=== PATIENT | female | born 1940 | race Caucasian/White ===

== ENCOUNTER 2021-06-06 10:50 | Outpatient (CLI) | payer MEDICARE, SELFPAY ==
--- NOTE | ~2021-06-06 | XR_ITS ---
EXAMINATION: XR foot RT standing 2V DATE: 06/06/2021 11:52 INDICATION: Polymyalgia rheumatica. TECHNIQUE: 2 views of right foot standing were obtained. COMPARISON: None. FINDINGS: Bone alignment is normal. No fracture. There is mild osteoarthritis of first metatarsophala ngeal joint and some of the midfoot joints and interphalangeal joints. There is an old healed fractur e of diaphysis of third metatarsal. There is an erosion of medial aspect of head of first proximal ph alanx. There is enthesophyte at the posterior and plantar aspects of calcaneal tuberosity. IMPRESSION: 1. Erosion of medial aspect of head of first proximal phalanx. This finding may be secondary to old t rauma or gout. 2. Mild polyarticular osteoarthritis. Reviewed, dictated and finalized at location A. UP SCAN COORDINATOR IMPRESSION: 1. Erosion of medial aspect of head of first proximal phalanx. This finding may be secondary to old trauma or gout. 2. Mild polyarticular osteoarthritis.
--- NOTE | ~2021-06-06 | XR_ITS ---
EXAMINATION: XR knee LT 3V EXAM DATE: 06/06/2021 11:52 INDICATION: M35.3 - Polymyalgia rheumatica TECHNIQUE: Three projections of the left knee. There is no prior study for comparison. FINDINGS: No evidence osteochondral defect or joint body in the left knee joint. Moderate amount o f SFA and popliteal arterial sclerosis. Some surgical clips from saphenous venous harvest. Moderate m edial tibiofemoral compartment are osteoarthritis, mild at the other compartments. There are no acute fractures or dislocations identified. There is no subcutaneous gas. The soft tissue is unremarkabl e. Trace joint fluid. IMPRESSION: Mild to moderate left knee osteoarthritis. Reviewed, dictated and finalized at location G. D OFFICER
--- NOTE | ~2021-06-06 | XR_ITS ---
EXAMINATION: XR lumbar spine min 4V EXAM DATE: 06/06/2021 11:52 INDICATION: Polymyalgia. TECHNIQUE: Lumber spine frontal, lateral, bilateral oblique projections. Coned down frontal and lat eral L5-S1 lumbar projections for interpretation. There is no prior study for comparison. FINDINGS: There is moderate to severe disease at L3-4, mild to moderate at L4-5 and mild at the other lumbar levels. There is moderate mid and lower lumbar facet arthropathy. Moderate aortic arterial sc lerosis. The vertebral bodies are aligned in the AP dimension. There are no acute fractures identifie d. No spondylolysis suspected. Sacrum, sacroiliac joints, sacral arcuate lines are intact. IMPRESSION: L3-4 moderate to severe disc disease, moderate mid and lower lumbar facet arthropathy. Reviewed, dictated and finalized at location G. ER STOCK GRADER
--- NOTE | ~2021-06-06 | XR_ITS ---
XR knee RT 3V 06/06/2021 11:52 Indication: Right knee pain Procedure: 3 views right knee Comparison: No prior studies for comparison. Findings: No fracture, subluxation or dislocation. There is complete loss of joint space medially, co nsistent with degenerative joint disease. Osteopenia. No significant joint effusion. Extensive vascul ar calcification. Impression: 1: Severe medial compartmental osteoarthritis of the right knee. Reviewed, dictated and finalized at location B. ON WEIGHER OPERATOR Impression: 1: Severe medial compartmental osteoarthritis of the right knee.
--- NOTE | ~2021-06-06 | XR_ITS ---
EXAMINATION: XR hand BI arthritis min 3V DATE: 06/06/2021 11:52 INDICATION: Unspecified osteoarthritis, unspecified site. TECHNIQUE: 4 views of right hand and 4 views of left hand on 7 radiographs were obtained. COMPARISON: None. FINDINGS: RIGHT HAND: Bone alignment is normal. No fracture. There is diffuse osteopenia. There is severe osteo arthritis of first carpometacarpal joint, moderate osteoarthritis of second and third distal interpha langeal joints, and mild osteoarthritis of first interphalangeal joint and fourth distal interphalang eal joint. LEFT HAND: Bone alignment is normal. No fracture. There is severe osteoarthritis of first carpometaca rpal joint, moderate osteoarthritis of first interphalangeal joint and second proximal interphalangea l joint, and mild osteoarthritis of second and third distal interphalangeal joints. There is a surgic al clip in the wrist. IMPRESSION: 1. Polyarticular osteoarthritis. Reviewed, dictated and finalized at location A. ER EXTRUSION MACHINE OPERATOR
--- NOTE | ~2021-06-06 | XR_ITS ---
EXAMINATION: XR foot LT standing 2V DATE: 06/06/2021 11:52 INDICATION: Polymyalgia rheumatica. TECHNIQUE: 2 views of left foot standing were obtained. COMPARISON: None. FINDINGS: Bone alignment is normal. No acute fracture. There is focal periosteal reaction involving t he diaphyses of the first, third, and fourth metatarsals. There is mild osteoarthritis of some of the interphalangeal joints and midfoot joints. There are enthesophytes at the posterior and plantar aspe cts of calcaneal tuberosity. There are surgical clips in the lower leg. IMPRESSION: 1. Periosteal reaction involving the diaphyses of the first, third, and fourth metatarsals. The diffe rential diagnosis includes venous stasis and healing/healed fractures. 2. Mild polyarticular osteoarthritis. Reviewed, dictated and finalized at location A. ON SWEATBAND OPERATOR IMPRESSION: 1. Periosteal reaction involving the diaphyses of the first, third, and fourth metatarsals. The differential diagnosis includes venous stasis and healing/heal ed fractures. 2. Mild polyarticular osteoarthritis.
[2021-06-06 12:25] LABS: Hematocrit 31.4 % (37.0-47.0); Hemoglobin 10.2 g/dL (12.0-15.0); Mean Corpuscular HGB Conc 32.5 g/dl (32-36); Mean Corpuscular Hemoglobin 35.5 pg (26-34); Mean Corpuscular Volume 109.4 fl (80-100); Mean Platelet Volume 10.3 fl (7.4-10.4); Platelet Count Result 238 k/mm3 (150-375); Red Blood Count 2.87 M/mm3 (4.2-5.4); Red Cell Distribution Width 14.8 % (11.5-14.5); White Blood Count 10.9 K/mm3 (4.5-10.0)
[2021-06-06 12:49] LABS: Alanine Aminotransferase 13 U/L (4-35); Albumin Level 4.1 g/dL (3.5-5.1); Alkaline Phosphatase 79 U/L (38-126); Anion Gap 11 mmol/L (8-16); Aspartate Amino Transferase 27 U/L (14-36); Bilirubin,Total 0.6 mg/dL (0.2-1.3); Blood Urea Nitrogen 59 mg/dL (7-17); Calcium 8.8 mg/dL (8.4-10.2); Carbon Dioxide 32 mmol/L (22-30); Chloride 90 mmol/L (98-107); Estimated Glomerular Filt Rate 24; Glucose 192 mg/dL (65-110); Potassium 3.9 mmol/L (3.4-5.0); Sodium 133 mmol/L (137-145); Uric Acid 6.6 mg/dL (2.5-7.5)
[2021-06-06 13:04] LABS: Erythrocyte Sedimentation Rate 98 mm/hr (0-20)
== END 2021-06-06 10:51 | disposition home or self-care (01) ==
PROVIDERS: PCP Family Medicine; Visit Provider Internal Medicine
DX: E55.9 Vitamin D deficiency, unspecified (principal); M35.3 Polymyalgia rheumatica; M47.812 Spondylosis without myelopathy or radiculopathy, cervical region; M47.816 Spondylosis without myelopathy or radiculopathy, lumbar region; M15.9 Polyosteoarthritis, unspecified; M51.36 Other intervertebral disc degeneration, lumbar region; M12.88 Other specific arthropathies, not elsewhere classified, other specified site
CPT/HCPCS: 36415; 72110; 73130; 73562; 73620; 80053; 84550; 85027; 85652; 86140